=== PATIENT | female | born 1980 | race Caucasian/White ===

== ENCOUNTER 2017-02-02 11:15 | Emergency (ER) | payer OTHER ==
[~2017-02-02] VITALS: Ht 167.6 cm; Wt 81.6 kg
--- NOTE | ~2017-02-02 | US106 ---
[facility] A Service of [facility] RADIOLOGY TEXT RESULTS PATIENT: MART[address]N ST LOCATION: CFTX : 84 UNIT #: [id number] AGE: [address]: Chen Dominguez APRN SEX: F ORDER DR: [id number] [facility] [address] [place], [place] [address] [id number] E MR#: [id number] Acc #: [id number] NAME: MARTÍN ST : 1980 SEX: F STUDY DATE/TIME: 02/02/2017 12:27 UNIT: CFTX ROOM: STUDY DESCRIPTION: US Preg Uterus Transvaginal Attending Physician: Chen Dominguez A.P.R.N. Ordering Physician: Brant Mccoy M.D. Primary Care Physician: No Primary Care Physician MEDICAL IMAGING REPORT This report is preliminary unless electronic signature is present EXAM Early ultrasound INDICATIONS Vomiting 2 weeks with cramping for 2 weeks. FINDINGS Transabdominal followed by transvaginal imaging was performed. The uterus is about 7.2 x 4.4 x 5.2 cm. Yolk sac is visible. Gestational sac is normal. Gestational sac is 2.7 x 1.4 x 2.8 cm giving an expected gestational age of 7 weeks 5 days. pole is 5.7 mm in size given estimated gestational age of 6 weeks and 3 days. heartbeat is 119 beats per minute. The right ovary is 3.3 in diameter and contains a 2.2 cm cyst. There is normal flow in the right ovary. The left ovary cannot be seen on the transabdominal imaging and transvaginal imaging did show it and it was normal in appearance measuring about 2.5 cm in diameter. IMPRESSION 1. There is about a 6-week 3-day intrauterine with a heartbeat. 2. Corpus luteum cyst is seen in the right ovary; otherwise, both ovaries appear normal. 3. There is no evidence of abnormal bleeding or fluid collection. Dictated by... Jose Fox M.D. THIS IS AN ELECTRONICALLY VERIFIED REPORT Jose Fox M.D. at 02/02/2017 8:15 PM BE/dianne TD: 02/02/2017 15:25 [facility] A Service of [facility] RADIOLOGY TEXT RESULTS PATIENT: MART[address]N ST LOCATION: [facility] #: [id number] : [birth year] UNIT #: [id number] AGE: [address]: Chen Dominguez APRN SEX: F ORDER DR: [place] #: [id number] MEDICAL IMAGING REPORT Page 1 of 1 COPY
[2017-02-02 12:24] LABS: URINE SOURCE CLEAN CATCH
[2017-02-02 12:28] LABS: BASOPHIL% 0.4 % (0-2.5); EOSINOPHIL# 0.1 X10e3 (0-0.7); EOSINOPHIL% 0.7 % (0.0-7.0); HEMOGLOBIN 11.7 gm/dL (12.0-16.0); LYMPHOCYTE% 22.3 % (17.0-45.0); MEAN CELL VOLUME 83.7 FL (83-96); MEAN CORPUSCULAR HEMOGLOBIN 28.1 PG (28-34); MEAN CORPUSCULAR HGB CONC 33.6 g/dL (30-36); MEAN PLATELET VOLUME 8.6 FL (6.5-11.5); MONOCYTE# 0.5 X10e3 (0-1.0); MONOCYTE% 5.6 % (3.0-12.0); NEUTROPHIL# 6.4 X10e3 (1.5-7.1); PLATELET COUNT 147 X10e3 (140-420); RED BLOOD COUNT 4.18 X10e (3.90-5.30); RED CELL DISTRIBUTION WIDTH 15.3 % (11.0-15.5)
[2017-02-02 12:28] LABS: URINE APPEARANCE TURBID; URINE BLOOD 3+ (NEG); URINE COLOR DK YELLOW; URINE GLUCOSE NEG (NEG); URINE KETONE TRACE (NEG); URINE LEUKOCYTE ESTERASE TRACE (NEG); URINE NITRATE NEG (NEG); URINE PH 5.5 (5-8); URINE PROTEIN TRACE (NEG); URINE SPECIFIC GRAVITY 1.032 (1.003-1.035)
[2017-02-02 12:29] LABS: CULTURE INDICATED? YES; URBCS1 AUWI 50-100 /[HPF] (0-2); URINE BACTERIA AUWI 1+ (NEGATIVE); URINE SQUAMOUS EPITHELIAL CELL MOD /[HPF]
[2017-02-02 12:31] LABS: DIFF IND NO
[2017-02-02 12:34] LABS: U HYALINE CASTS AUWI 0-2 /[LPF]; URINE BILIRUBIN NEG (NEG); URINE MUCUS PRESENT
[2017-02-02 13:00] LABS: ALBUMIN SERUM 3.9 g/dL (3.5-5.0); BILIRUBIN, DIRECT 0.1 mg/dL (0.0-0.2); BILIRUBIN,INDIRECT 0.2 mg/dL (0.0-0.9); BILIRUBIN,TOTAL 0.3 mg/dL (0.2-2.0); CALCIUM SERUM 8.9 mg/dL (8.4-10.2); CREATININE SERUM 0.7 mg/dL (0.6-1.4); POTASSIUM 3.6 mmol/L (3.5-5.1); PROTEIN TOTAL SERUM 6.7 g/dL (6.0-8.3)
[2017-02-03 22:57] LABS: CHLAMYDIA TRACH Not Detected (Not Detected); N GONOR Not Detected (Not Detected)
== END 2017-02-02 13:44 | disposition home or self-care (01) ==
LOC: CFTX 11:15 → CED 11:15 → CFTX 13:15
PROVIDERS: Nurse Practitioner
DX: O23.41 Unspecified infection of urinary tract in pregnancy, first trimester (principal); O99.611 Diseases of the digestive system complicating pregnancy, first trimester; K21.9 Gastro-esophageal reflux disease without esophagitis; O24.911 Unspecified diabetes mellitus in pregnancy, first trimester; E11.9 Type 2 diabetes mellitus without complications; O16.1 Unspecified maternal hypertension, first trimester; I10 Essential (primary) hypertension; O99.331 Smoking (tobacco) complicating pregnancy, first trimester; F17.210 Nicotine dependence, cigarettes, uncomplicated; Z79.4 Long term (current) use of insulin; Z90.49 Acquired absence of other specified parts of digestive tract; Z88.1 Allergy status to other antibiotic agents
CPT/HCPCS: 36415; 76817; 80048; 80076; 81003; 82947; 83690; 84702; 84703; 85025; 87086; 87491; 87591; 87808; 87905; 94640; 99284